=== PATIENT | male | born 1950 | race Caucasian/White ===

== ENCOUNTER 2021-12-10 17:05 | Emergency (ER) | payer MEDICAID, OTHER ==
[~2021-12-10] VITALS: Ht 167.6 cm; Wt 90.0 kg
[2021-12-10] MEDS ORDERED: LIDOCAINE HCL 1% 20ML VIAL (Pyxis) INJ INFIL ONE (18:45)
[2021-12-10] MEDS ORDERED: TETANUS AND DIPHTHERIA TOX/PF 0.5ML SYR (ADULT) IM ONE (18:45)
[2021-12-10] MEDS ORDERED: TETANUS, DIPHTHERIA, PERTUSSIS VAC/PF 0.5ML (>10YR OLD) IM ONE (19:30)
[2021-12-10] MEDS ORDERED: LIDOCAINE HCL/PF 1% 2ML VIAL INFIL NR (20:00)
[2021-12-10] MEDS ORDERED: ACETAMINOPHEN 325MG TABLET PO ONE (22:30)
[2021-12-10 23:14] VITALS: BP 140/79
== END 2021-12-10 23:16 | disposition home or self-care (01) ==
LOC: ER 17:05
DX: S00.81XA Abrasion of other part of head, initial encounter (principal); S09.8XXA Other specified injuries of head, initial encounter; E11.9 Type 2 diabetes mellitus without complications; I10 Essential (primary) hypertension; W01.0XXA Fall on same level from slipping, tripping and stumbling without subsequent striking against object, initial encounter; Y93.01 Activity, walking, marching and hiking; Y92.9 Unspecified place or not applicable
CPT/HCPCS: 70450; 72125; 90471; 90715; 99284; J3490; 90714